=== PATIENT | male | born 1980 | race Caucasian/White ===

== ENCOUNTER 2025-01-13 09:52 | Day surgery (SDC) | payer OTHER ==
[~2025-01-13] VITALS: Ht 185.4 cm; Wt 80.8 kg
[~2025-01-13 09:52] MED LIST: Lactated Ringer's 1,000 ML IV ONE; propofoL 50 ML IV ONE
[2025-01-13] MEDS ORDERED: Lactated Ringer's 1,000 ML IV ONE (11:27)
[2025-01-13] MEDS ORDERED: propofoL 50 ML IV ONE (12:08)
[2025-01-13 13:04] VITALS: BP 137/106
--- NOTE | 2025-01-13 13:07 | NUR ---
01/13/25 1306 Gianna Montano PT. VERBALIZES NAUSEA AFTER DRINKING SODA "1", NOT BAD PER PT. PT. VERBALIZES HE USUALLY DOESN'T DRINK SODA BECAUSE IT GIVES HIM PAIN AT 3 AM IN HIS STOMACH BUT PT. WANTED SODA. DRRemberto ALSO AWARE OF HIGH BP, PER PT. THIS IS NORMAL FOR HIM. PT. BACK TO HIS PREOP BP. OK PER TO SEND PT. HOME.
== END 2025-01-13 12:41 | disposition home or self-care (01) ==
LOC: ORSCSDS 09:52
PROVIDERS: Specialist
PROC: 0DB68ZX Excision of Stomach, Via Natural or Artificial Opening Endoscopic, Diagnostic (ICD-10-PCS; principal; 2025-01-13 11:45)
PROC: 0DB98ZX Excision of Duodenum, Via Natural or Artificial Opening Endoscopic, Diagnostic (ICD-10-PCS; principal; 2025-01-13 11:45)
PROC: 0DB58ZX Excision of Esophagus, Via Natural or Artificial Opening Endoscopic, Diagnostic (ICD-10-PCS; principal; 2025-01-13 11:45)
PROC: 0DB88ZX Excision of Small Intestine, Via Natural or Artificial Opening Endoscopic, Diagnostic (ICD-10-PCS; principal; 2025-01-13 11:45)
PROC: 0DJD8ZZ Inspection of Lower Intestinal Tract, Via Natural or Artificial Opening Endoscopic (ICD-10-PCS; principal; 2025-01-13 11:45)
DX: K21.9 Gastro-esophageal reflux disease without esophagitis (principal); Z12.11 Encounter for screening for malignant neoplasm of colon; Z86.0100 Personal history of colon polyps, unspecified; K52.9 Noninfective gastroenteritis and colitis, unspecified; K64.8 Other hemorrhoids; K25.9 Gastric ulcer, unspecified as acute or chronic, without hemorrhage or perforation; K57.30 Diverticulosis of large intestine without perforation or abscess without bleeding; Z79.899 Other long term (current) drug therapy
CPT/HCPCS: 43239; G0105; 88305; 88342; J2704; J7120

== ENCOUNTER 2025-02-20 12:02 | Emergency (ER) | payer OTHER | END 2025-02-20 12:53 | disposition left against medical advice (07) | LOC: ER 12:02 | DX: R10.9 Unspecified abdominal pain (principal); K21.9 Gastro-esophageal reflux disease without esophagitis; Z53.21 Procedure and treatment not carried out due to patient leaving prior to being seen by health care provider ==

== ENCOUNTER 2025-04-07 05:52 | Day surgery (SDC) | payer OTHER ==
[~2025-04-07] VITALS: Ht 185.4 cm; Wt 81.5 kg
[2025-04-07] VITALS (13 sets, daily range): BP systolic 117–178; BP diastolic 74–110
[~2025-04-07 05:52] MED LIST changes: +FAMO20 PO; -Lactated Ringer's 1,000 ML IV ONE; -propofoL 50 ML IV ONE
[2025-04-07] MEDS ORDERED: Lactated Ringer's 1,000 ML IV SCH ×2 (06:25→09:30)
[2025-04-07] MEDS ORDERED: Bupivacaine 0.5% HCl 5 MG/ML 30MLVIAL ONE (06:52)
[2025-04-07] MEDS ORDERED: propofoL 20 ML IV ONE (07:07)
[2025-04-07] MEDS ORDERED: Midazolam HCl 1MG / ML 2ML Vial ONE (07:07)
[2025-04-07] MEDS ORDERED: Rocuronium Bromide 10 MG/ML 5ML Injection IV ONE ×2 (07:07→09:09)
[2025-04-07] MEDS ORDERED: FentaNYL Citrate 50 MCG/ML 2 ML Injection ONE (07:07)
[2025-04-07] MEDS ORDERED: Dexamethasone Sod Phos 10 MG/ML 1ML VIAL ONE (07:36)
[2025-04-07] MEDS ORDERED: Ketorolac Tromethamine 30mg Vial ONE (07:36)
[2025-04-07] MEDS ORDERED: Ondansetron HCl 2 MG / ML 2ML Vial ONE (07:36)
[2025-04-07] MEDS ORDERED: HYDROmorphone HCl/Pf 1MG SYR IV PRN ×3 (08:05→09:30)
[2025-04-07] MEDS ORDERED: Ondansetron HCl 2 MG / ML 2ML Vial IV PRN ×2 (08:05→09:30)
[2025-04-07] MEDS ORDERED: FentaNYL Citrate 50 MCG/ML 2 ML Injection IV PRN ×2 (08:05)
[2025-04-07] MEDS ORDERED: HydrALAZINE HCl 20 MG / ML 1ML Vial ONE (09:09)
[2025-04-07] MEDS ORDERED: Sugammadex Sodium 200 MG/2ML SDV (100 MG/ML) ONE (09:09)
[2025-04-07] MEDS ORDERED: Acetaminophen 325 MG TABLET PO PRN (09:25)
[2025-04-07] MEDS ORDERED: OxyCODONE HCL 5 MG TAB PO PRN (09:30)
[2025-04-07] MEDS ORDERED: HYDROmorphone HCl/Pf 1MG SYR ONE (09:35)
[2025-04-07] MEDS ORDERED: Ketorolac Tromethamine 15mg Vial IV PRN (09:35)
--- NOTE | 2025-04-07 10:27 | NUR ---
ARRIVAL PT ARRIVED TO UNIT FROM PACU. S/P FUNDOPLICATION LAP SITES X4 CDI WITH WOUND GLUE. ABD BINDER IN PLACE. PT ABLE TO STAND AND AMBULATE TO RESTROOM. FELT A LITTLE SWEATY AFTER BUT REPORTS STILL FEELING GOOD AND PAIN AT 2/10. TOLERATING SMALL SIPS OF WATER AT THIS TIME. NO NAUSEA.
[2025-04-07] MEDS ORDERED: OXYC5 PO (13:06)
--- NOTE | 2025-04-07 15:58 | NUR ---
discharge S/P FUNDOPLICATION PT CONTINUES TO TOLERATE PO INTAKE WITH NO NAUSEA. MINIMAL PAIN REPORTED. AMBULATING WELL IN ROOM WITH ABD BINDER ON. LAP SITES REMAIN CDI. ALL INSTRUCTIONS GONE OVER WITH PATIENT. VERBALIZED UNDERSTANDING. ESCORTED OUT VIA WHEELCHAIR. ALL BELONGINGS WITH PATIENT.
[2025-04-07] MEDS ORDERED: Sennosides 8.6 MG Tab PO SCH (21:00)
[2025-04-08] MEDS ORDERED: Enoxaparin 40 MG/0.4 ML SYR SC SCH (09:00)
== END 2025-04-07 15:59 | disposition home or self-care (01) ==
LOC: ORSCMMR 05:52 → ORD 07:30 → ORSCMMR 07:30 → SURS 10:01 → ORSCMMR 15:59
PROVIDERS: Surgery
PROC: 0BQT4ZZ Repair Diaphragm, Percutaneous Endoscopic Approach (ICD-10-PCS; principal; 2025-04-07 07:30)
PROC: 0DV44ZZ Restriction of Esophagogastric Junction, Percutaneous Endoscopic Approach (ICD-10-PCS; principal; 2025-04-07 07:30)
PROC: 8E0W4CZ Robotic Assisted Procedure of Trunk Region, Percutaneous Endoscopic Approach (ICD-10-PCS; principal; 2025-04-07 07:30)
DX: K21.9 Gastro-esophageal reflux disease without esophagitis (principal); K44.9 Diaphragmatic hernia without obstruction or gangrene; R10.13 Epigastric pain; Z87.891 Personal history of nicotine dependence; Z79.899 Other long term (current) drug therapy
CPT/HCPCS: A9270; J0360; J1100; J1171; J1885; J2250; J2405; J2704; J3010; J7120